=== PATIENT | female | born 1940 | race Caucasian/White ===

== ENCOUNTER → 2018-10-13 | Outpatient (CLI) | payer OTHER | END | disposition home or self-care (01) | LOC: CVU 15:20 | PROVIDERS: ATTEND Nurse Practitioner Family | DX: I08.1 Rheumatic disorders of both mitral and tricuspid valves (principal); I10 Essential (primary) hypertension; E11.9 Type 2 diabetes mellitus without complications | CPT/HCPCS: 93306 ==

== ENCOUNTER 2019-02-12 12:08 | Emergency (ER) | payer OTHER ==
[~2019-02-12] VITALS: Ht 152.4 cm; Wt 74.2 kg
[2019-02-12 12:19] VITALS: BP 153/54
--- NOTE | 2019-02-12 13:23 | NUR ---
THIS IS A 78 YEAR OLD FEMALE WHO C/O LEFT NARE NOSEBLEED SINCE YESTERDAY, BLEEDING LEAKING THROUGH PACKING. PT SEEN AT [facility] FOR THIS LAST NIGHT AND PACKING PLACED, FAMILY WAS TOLD THEY DID NOT HAVE [facility] AND WERE INSTRUCTED THEY COULD GO TO ANOTHER ER. FOLLOWED BY ENT MICHELLE FOR SAME ISSUE.
--- NOTE | 2019-02-12 13:40 | NUR ---
Patient/Caregiver given discharge instructions and they have confirmed that they understand the instructions. Patient ambulatory with steady gait.
== END 2019-02-12 13:41 | disposition home or self-care (01) ==
LOC: ED 13:06
DX: R04.0 Epistaxis (principal); I10 Essential (primary) hypertension; E11.9 Type 2 diabetes mellitus without complications; I25.10 Atherosclerotic heart disease of native coronary artery without angina pectoris; Z95.0 Presence of cardiac pacemaker
CPT/HCPCS: 99281